=== PATIENT | male | born 1975 | race Two or more races ===

== ENCOUNTER 2024-07-13 14:53 | Inpatient (IN) | payer OTHER ==
[~2024-07-13] VITALS: Ht 177.8 cm; Wt 90.9 kg
[~2024-07-13 14:53] MED LIST: RISP-31 PO
[2024-07-13] MEDS ORDERED: MAGNESIUM HYDROXIDE SUSPENSION 30 ML UDCUP PO PRN (16:15)
[2024-07-13 16:22] LABS: BASOPHILS % (AUTO) 0.3 % (0.0-2.0); EOSINOPHILS % (AUTO) 1.1 % (1.0-6.0); HEMATOCRIT 41.9 % (41-53); HEMOGLOBIN 14.2 g/dL (13.5-17.5); LYMPHOCYTES # (AUTO) 2.1 K/uL (1.0-4.8); LYMPHOCYTES % (AUTO) 32.7 % (22.0-44.0); MEAN CORPUSCULAR HEMOGLOBIN 30.8 pg (26.0-34.0); MEAN CORPUSCULAR VOLUME 91 fL (80-100); MONOCYTES # (AUTO) 0.5 K/uL (0.1-1.0); NEUTROPHILS # (AUTO) 3.8 K/uL (1.8-7.7); NEUTROPHILS % (AUTO) 57.9 % (40.0-70.0); PLATELET COUNT (AUTO) 160 K/uL (150-450); RED BLOOD CELL COUNT(AUTO) 4.62 MIL/uL (4.50-5.90); RED CELL DISTRIBUTION WIDTH 13.1 % (11.5-14.5); WHITE BLOOD COUNT (AUTO) 6.5 K/uL (4.5-11.0)
[2024-07-13 16:33] LABS: ANION GAP 7 mmol/L (8-16); CALCIUM, TOTAL 8.4 mg/dL (8.8-10.5); CARBON DIOXIDE 31 mmol/L (22-29); CHLORIDE 102 mmol/L (98-107); CREATININE 1.06 mg/dL (0.60-1.30); GLOMERULAR FILTR. RATE CALC > 60 mL/min (>60); GLUCOSE,RANDOM 113 mg/dL (70-110); POTASSIUM 3.5 mmol/L (3.5-5.1); SODIUM SERUM 140 mmol/L (136-145); UREA NITROGEN, BLOOD 20 mg/dL (7-18)
[2024-07-13 16:41] LABS: ALCOHOL, BLOOD (SERUM) < 3 mg/dL (0-10)
[2024-07-13] MEDS: ACETAMINOPHEN 325 MG TABLET PO PRN (17:42)
[2024-07-13 17:51] LABS: COVID AG,FIA SOURCE NASAL SWAB
[2024-07-13 18:12] LABS: SARS-COV2 (COVID) ANTIGEN,FIA Negative (Negative)
[2024-07-13 19:45] VITALS: BP 118/73; PULSE 80; RESP 18; TEMP 98; O2SAT 97
[2024-07-14 05:15] VITALS: BP 113/76; PULSE 62; RESP 18; TEMP 97.8; O2SAT 99
[2024-07-14 08:11] VITALS: BP 121/83; PULSE 68; RESP 19; TEMP 97.7; O2SAT 100
[2024-07-14] MEDS: PARoxetine HCL 20 MG TABLET PO SCH (08:26)
[2024-07-14] MEDS: FAMOTIDINE 20 MG TABLET PO SCH (08:26)
[2024-07-14] MEDS ORDERED: SERTRALINE HCL 50 MG TABLET PO SCH (13:00)
[2024-07-14] MEDS: BusPIRone HCL 5 MG TABLET PO SCH (15:30)
[2024-07-14 16:10] LABS: APPEARANCE,URINE CLEAR (CLEAR); BILIRUBIN,URINE NEGATIVE (NEGATIVE); COLOR,URINE LIGHT YELLOW (YELLOW); GLUCOSE, URINE (UA) NEGATIVE (NEGATIVE); KETONES,URINE NEGATIVE (NEGATIVE); LEUKOCYTE ESTERASE ,URINE NEGATIVE (NEGATIVE); NITRATE,URINE NEGATIVE (NEGATIVE); OCCULT BLOOD,URINE NEGATIVE (NEGATIVE); PH,URINE 6.5 (5.0-8.0); PROTEIN,URINE NEGATIVE (NEGATIVE); SPECIFIC GRAVITIY, URINE 1.015 (1.003-1.030); UROBILINOGEN,URINE <=1.0 mg/dL (<=1.0)
[2024-07-14 16:23] LABS: ALCOHOL, URINE DRUG SCREEN NEGATIVE (NEGATIVE); AMPHET/METH SCREEN,URINE NEGATIVE (NEGATIVE); BARBITURATE SCREEN, URINE NEGATIVE (NEGATIVE); BENZODIAZEPINES SCREEN,URINE NEGATIVE (NEGATIVE); CANNABINOID SCREEN,URINE NEGATIVE (NEGATIVE); COCAINE SCREEN,URINE NEGATIVE (NEGATIVE); METHADONE SCREEN, URINE NEGATIVE (NEGATIVE); OPIATE SCREEN,URINE NEGATIVE (NEGATIVE); PHENCYCLIDINE SCREEN,URINE NEGATIVE (NEGATIVE)
[2024-07-14 16:27] LABS: PH,URINE DRUG SCREEN 6.5 (5.0-8.0)
[2024-07-14 20:11] VITALS: BP 117/74; PULSE 74; RESP 18; TEMP 98; O2SAT 97
[2024-07-14] MEDS: ZOLPIDEM TARTRATE 5 MG TABLET PO PRN (20:13)
[2024-07-15 04:49] VITALS: BP 124/79; PULSE 74; RESP 18; TEMP 97.9; O2SAT 100
[2024-07-15 05:06] LABS: HEPATITIS C AB (EIA) Non Reactive (Non Reactive)
[2024-07-15 08:40] VITALS: BP 131/72; PULSE 69; RESP 18; TEMP 98.8; O2SAT 98
[2024-07-15 19:33] VITALS: BP 116/69; PULSE 74; RESP 18; TEMP 98.8; O2SAT 96
[2024-07-16 05:11] VITALS: BP 117/76; PULSE 70; RESP 18; TEMP 98; O2SAT 96
[2024-07-16 09:16] VITALS: BP 125/74; PULSE 72; RESP 18; TEMP 98; O2SAT 96
[2024-07-16] MEDS: RisperiDONE 1 MG TABLET PO SCH (12:20)
[2024-07-16] MEDS ORDERED: PARO-38 PO (13:17)
[2024-07-16] MEDS ORDERED: BUSP5TAB20 PO (13:17)
[2024-07-16] MEDS ORDERED: FAMO20 PO (13:17)
== END 2024-07-16 18:06 | DRG 885 ==
LOC: EMS 14:53 → EDH 16:04 → 6S 19:54
PROVIDERS: ADMIT Internal Medicine; ATTEND Internal Medicine
DX: F33.3 Major depressive disorder, recurrent, severe with psychotic symptoms (principal); R45.851 Suicidal ideations; F41.9 Anxiety disorder, unspecified; Z20.822 Contact with and (suspected) exposure to COVID-19
CPT/HCPCS: 80048; 80307; 81003; 85025; 86803; 87340; 99285; G0480